=== PATIENT | female | born 1990 | race American Indian/Alaskan Native ===

== ENCOUNTER 2021-08-08 11:21 | Inpatient (IN) | payer BC ==
[2021-08-12] MEDS ORDERED: Nalbuphine 10 MG/1 ML Vial IVPUSH PRN
[2021-08-12] MEDS ORDERED: Tranexamic Acid 1,000 MG in Sodium Chloride 0.9% 100 ML IV PRN ×2
[2021-08-12] MEDS ORDERED: Carboprost Tromethamine 250 MCG/1 ML Amp IM PRN
[2021-08-12] MEDS ORDERED: fentaNYL 100 MCG/2 ML SDV IVPUSH PRN
[2021-08-12] MEDS ORDERED: Misoprostol 25 MCG (1/4 of 100 MCG) Tab VAG PRN
[2021-08-12] MEDS ORDERED: Methylergonovine 0.2 MG/1 ML Amp IM PRN
[2021-08-12] MEDS ORDERED: Acetaminophen 325 MG Tab PO PRN
[2021-08-12] MEDS ORDERED: Lidocaine 1% 30 ML SDV INJECT PRN
[2021-08-12] MEDS ORDERED: Misoprostol 400 MCG (4 X 100 MCG TAB) RECTAL PRN
[2021-08-12] MEDS ORDERED: Sodium Chloride 0.9% 10 ML Syringe FLUSH PRN
[2021-08-12] MEDS ORDERED: Ondansetron 4 MG/2 ML SDV IVPUSH PRN
[2021-08-12] MEDS: Lactated Ringers 1,000 ML IV SCH ×2 (06:25→22:58)
[2021-08-12] MEDS: Oxytocin/Normal Saline 30 UNIT/500 ML BAG IV SCH (06:28)
[2021-08-12] MEDS: Nalbuphine 10 MG/1 ML Vial IM PRN ×2 (09:32→21:10)
[2021-08-12] MEDS: Lactated Ringers 1,000 ML IV ONE ×2 (18:56→22:27)
[2021-08-12] MEDS ORDERED: fentaNYL 100 MCG/2 ML SDV ONE (22:45)
[2021-08-12] MEDS ORDERED: Sodium Chloride 0.9% 20 ML SDV ONE (22:46)
[2021-08-12] MEDS ORDERED: fentaNYL 100 MCG/2 ML SDV ITHECAL ONE (22:46)
[2021-08-12] MEDS ORDERED: EPINEPHrine 1 MG/ML SDV ONE ×2 (22:46)
[2021-08-12] MEDS ORDERED: Sodium Bicarbonate 4.2% 2.5 MEQ/5 ML SDV ONE ×2 (22:46)
[2021-08-13] MEDS: Oxytocin/Normal Saline 30 UNIT/500 ML BAG IV SCH (03:15)
[2021-08-13] MEDS ORDERED: Benzocaine/Menthol 20%-0.5% Spray 78 GM Cannister TOP PRN (03:19)
[2021-08-13] MEDS ORDERED: Simethicone 80 MG Tab.Chew PO PRN (03:19)
[2021-08-13] MEDS ORDERED: Oxytocin 10 Units/1 ML SDV IM PRN (03:19)
[2021-08-13] MEDS: Ibuprofen 800 MG Tab PO PRN ×2 (12:12→19:24)
[2021-08-13] MEDS: Prenatal Multivitamin with Calcium/Folic Acid/Iron Tab PO SCH (12:12)
[2021-08-13] MEDS: Docusate Sodium 100 MG Cap PO PRN ×2 (12:45→19:24)
[2021-08-13] MEDS ORDERED: Witch Hazel Medicated Pads 100/Jar TOP PRN (19:23)
[2021-08-14] MEDS: Acetaminophen 325 MG Tab PO PRN ×3 (01:25→19:24)
[2021-08-14] MEDS: Ibuprofen 800 MG Tab PO PRN ×3 (04:20→20:51)
[2021-08-14] MEDS ORDERED: Measles, Mumps & Rubella Vaccine 0.5 ML SDV SUBCUT ONE (08:27)
[2021-08-14] MEDS: Prenatal Multivitamin with Calcium/Folic Acid/Iron Tab PO SCH (08:57)
[2021-08-14] MEDS: Docusate Sodium 100 MG Cap PO PRN ×2 (08:58→20:55)
[2021-08-14] MEDS ORDERED: hydrOXYzine HCl 25 MG Tab PO PRN (19:58)
[2021-08-14 21:18] VITALS: PULSE 86
[2021-08-15] MEDS: Acetaminophen 325 MG Tab PO PRN (06:56)
[2021-08-15] MEDS ORDERED: Ferrous Sulfate 325 MG Tab PO SCH (08:00)
[2021-08-15] MEDS: Docusate Sodium 100 MG Cap PO PRN (08:24)
[2021-08-15] MEDS: Ibuprofen 800 MG Tab PO PRN (08:24)
[2021-08-15] MEDS: Prenatal Multivitamin with Calcium/Folic Acid/Iron Tab PO SCH (08:24)
[2021-08-15 08:50] VITALS: BP 127/71
== END 2021-08-15 10:25 | disposition home or self-care (01) | DRG 560 ==
LOC: DL.OBCHECK 08-11 19:24 → DL.OB 08-12 00:05 → UNDOADMIN 08-12 00:05 → EDSTATUS 08-12 22:40
PROVIDERS: ADMIT Family Medicine; ATTEND Family Medicine
PROC: 10E0XZZ Delivery of Products of Conception, External Approach (ICD-10-PCS; principal; 2021-08-13)
PROC: 0KQM0ZZ Repair Perineum Muscle, Open Approach (ICD-10-PCS; 2021-08-13)
PROC: 3E033VJ Introduction of Other Hormone into Peripheral Vein, Percutaneous Approach (ICD-10-PCS; 2021-08-13)
PROC: 10907ZC Drainage of Amniotic Fluid, Therapeutic from Products of Conception, Via Natural or Artificial Opening (ICD-10-PCS; 2021-08-13)
PROC: 3E0P7VZ Introduction of Hormone into Female Reproductive, Via Natural or Artificial Opening (ICD-10-PCS; 2021-08-13)
PROC: 3E0R3BZ Introduction of Anesthetic Agent into Spinal Canal, Percutaneous Approach (ICD-10-PCS; 2021-08-13)
DX: O48.0 Post-term pregnancy (principal); O77.0 Labor and delivery complicated by meconium in amniotic fluid; O70.1 Second degree perineal laceration during delivery; O99.02 Anemia complicating childbirth; O72.1 Other immediate postpartum hemorrhage; D62 Acute posthemorrhagic anemia; O99.344 Other mental disorders complicating childbirth; F41.9 Anxiety disorder, unspecified; F32.A Depression, unspecified; F90.9 Attention-deficit hyperactivity disorder, unspecified type; Z3A.40 40 weeks gestation of pregnancy; Z37.0 Single live birth; Z86.16 Personal history of COVID-19
CPT/HCPCS: 01967; 36415; 51701; 59409; 85027; 86592; 90471; 90707; A9270-GY; J0171; J2210; J2300; J2405; J2590; J3010; J7120